=== PATIENT | female | born 1955 | race Caucasian/White ===

== ENCOUNTER → 2016-10-15 | Outpatient (CLI) | payer OTHER ==
[~2016-10-15] MED LIST: ADVAIR 2501 DISK W/D PO; CENTRUM SILVER PO; CICLOPIROX30 GM TOP; ESTRADIOL1 MG PO; OMEPRAZOLE40 MG PO
--- NOTE | ~2016-10-15 | US116 ---
[facility]. [facility] A Service of [facility] & [facility] RADIOLOGY TEXT RESULTS PATIENT: SONIA MELLO [facility] 51 UNIT #: [id number] AGE: [address]: RAFA BLANCO APRN SEX: F ORDER DR: [id number] [place] [id number] O MR#: [id number] Acc #: [id number] NAME: SONIA MELLO : 1955 SEX: F STUDY DATE/TIME: 10/15/2016 9:04 [facility] RO[facility]: STUDY DESCRIPTION: US Soft Tissue Head/Neck Attending Physician: Rafa Blanco Aprn Referring Physician: Rafa Blanco Aprn Ordering Physician: Rafa Blanco Aprn Primary Care Physician: Giuseppe Becerril M.D. MEDICAL IMAGING REPORT This report is preliminary unless electronic signature is present. EXAM Soft tissue neck ultrasound HISTORY Neck mass on physical exam. FINDINGS The palpable abnormality appears to correspond to a small hypoechoic region, about 10 x 6 mm in size. The etiology, significance and precise location unclear. If there is concern about a head and neck mass in that area, soft tissue neck CT with contrast is recommended. Dictated by... Ashvin Snell M.D. THIS IS AN ELECTRONICALLY VERIFIED REPORT Ashvin Snell M.D. at 10/24/2016 10:39 AM TEV/pcl TD: 10/15/2016 22:17 JOB #: [id number] MEDICAL IMAGING REPORT Page 1 of 1
== END | disposition home or self-care (01) ==
LOC: SGUS 08:56
DX: R22.1 Localized swelling, mass and lump, neck (principal)
CPT/HCPCS: 76536

== ENCOUNTER → 2016-11-05 | Outpatient (CLI) | payer OTHER ==
--- NOTE | ~2016-11-05 | CT114 ---
[facility]. [facility] A Service of [facility] & [facility] RADIOLOGY TEXT RESULTS PATIENT: SONIA MELLO LOCATION: [facility] : 51 UNIT #: [id number] AGE: [address]: Giuseppe Becerril MD SEX: F ORDER DR: [id number] [address] [address] [id number] O MR#: [id number] Acc #: [id number] NAME: SONIA MELLO. : 1955 SEX: F STUDY DATE/TIME: 11/05/2016 10:23 UNIT: [facility] ROOM: STUDY DESCRIPTION: CT Soft Tissue Neck W Cont Attending Physician: Giuseppe Becerril M.D. Referring Physician: Melissa Montanez Aprn Ordering Physician: Giuseppe Becerril M.D. Primary Care Physician: Giuseppe Becerril M.D. MEDICAL IMAGING REPORT This report is preliminary unless electronic signature is present. EXAM CT neck with contrast HISTORY 58-year-old female delia sized nodule left side of face times 6 weeks. Tender to touch. States lump under left year. COMPARISON Soft tissue ultrasound neck 10/15/[address] exam was performed with one or more of the following radiation dose reduction techniques: automatic exposure control, adjustment of mA and/or kV according to patient size, and iterative reconstruction. FINDINGS Axial images performed from the skull base to the marcelo following IV contrast. Multiplanar reconstructed images reviewed. 75 mL Isovue-370 injected. Directly corresponding to the marker along the left neck there is a 7 x 9 mm nodule within the superficial aspect of the left parotid gland which is isointense with muscle. This is nonspecific could represent a small parotid tumor such as a Warthin tumor or pleomorphic adenoma. No lesions seen in the right parotid gland. Submandibular, and thyroid glands unremarkable. No significant head neck lymphadenopathy. Anatomic spaces within the neck appear normal. Skull base unremarkable. Head and neck vasculature unremarkable. C5-6, C6-7 degenerative disc changes noted in the cervical spine most pronounced at C5-6 with mild central canal stenosis due to posterior disc protrusion osteophyte. [facility] A Service of [facility] & [facility] RADIOLOGY TEXT RESULTS PATIENT: SONIA MELLO LOCATION: [facility] : 51 UNIT #: [id number] AGE: [address]: Giuseppe Becerril MD SEX: F ORDER DR: IMPRESSION 7 x 9 mm isodense lesion within the superficial aspect of the left parotid gland directly corresponding the patient's palpable abnormality and felt to correspond to the patient's abnormality noted on recent ultrasound. Imaging features at sonography and at ultrasound CT are nonspecific. This could represent a small Warthin tumor or pleomorphic adenoma. No involvement of the right parotid gland and no significant head neck lymphadenopathy or additional pathology. If elected lesion would be amendable to percutaneous aspiration. Dictated by... Napoleon Ariza M.D. THIS IS AN ELECTRONICALLY VERIFIED REPORT Napoleon Ariza M.D. at 11/06/2016 5:05 PM CRYSTAL/may TD: 11/06/2016 14:11 JOB #: [id number] MEDICAL IMAGING REPORT Page 1 of 1
[2016-11-05 10:25] LABS: POC - CREATININE 0.85 mg/dL (0.44-1.03); POC - GFR >60.0 mL/min (>60)
== END | disposition home or self-care (01) ==
LOC: SCT 11-02 10:20
PROVIDERS: Family Medicine
DX: R22.1 Localized swelling, mass and lump, neck (principal); K11.9 Disease of salivary gland, unspecified
CPT/HCPCS: 70491; 82565; Q9967